=== PATIENT | female | born 1980 | race Caucasian/White ===

== ENCOUNTER → 2016-08-10 | Outpatient (REF) | payer OTHER | LOC: M LAB REF 16:38 | PROVIDERS: ATTEND Obstetrics & Gynecology | DX: R32 Unspecified urinary incontinence (principal) ==

== ENCOUNTER 2016-09-17 07:44 | Day surgery (SDC) | payer OTHER ==
[~2016-09-17] VITALS: Ht 160 cm; Wt 61.7 kg
[2016-09-17] VITALS (7 sets, daily range): BP systolic 116–130; BP diastolic 55–70
[~2016-09-17 07:44] MED LIST: IBUP-1114 PO; MULT1TAB10 PO; TYLE325T5 PO; VITA10006 PO; VITA200015 PO; no medications
[2016-09-17] MEDS ORDERED: LR 1,000 ML IV SCH ×2 (08:00→13:15)
[2016-09-17 08:15] LABS: MEAN CORPUSCULAR HEMOGLOBIN 29.2 pg (27.0-33.0); MEAN CORPUSCULAR VOLUME 85.8 fl (80.0-96.0); RED CELL DISTRIBUTION WIDTH 12.9 % (11.5-14.5); WHITE BLOOD COUNT 14.8 K/mm3 (4.0-10.0)
[2016-09-17] MEDS: LR 1,000 ML IV SCH ×2 (08:15→16:15)
[2016-09-17 08:47] LABS: CONTROL LINE HCG INT CTR LINE PRESENT
[2016-09-17] MEDS ORDERED: ONDANSETRON 4MG/2ML VIAL (J2405) As Ordered ONE (09:10)
[2016-09-17] MEDS ORDERED: PROPOFOL 200 MG/20 ML VIAL As Ordered ONE (09:10)
[2016-09-17] MEDS ORDERED: LIDOCAINE 2% INJ 100 MG/5 ML SDV (FOR ANES.) As Ordered ONE (09:10)
[2016-09-17] MEDS ORDERED: dexameTHASONE 4 MG/ML 1ML VIAL (J1100) As Ordered ONE (09:10)
[2016-09-17] MEDS ORDERED: NEOSTIGMINE 1MG/ML 5 ML SYRINGE (J2710) As Ordered ONE (09:10)
[2016-09-17] MEDS ORDERED: KETOROLAC 60 MG/2 ML VIAL (J1885) As Ordered ONE (09:10)
[2016-09-17] MEDS ORDERED: ROCURONIUM BROMIDE 50 MG/5 ML VIAL As Ordered ONE ×2 (09:10→11:48)
[2016-09-17] MEDS ORDERED: GLYCOPYRROLATE INJ 0.2 MG/ML 2 ML VIAL As Ordered ONE (09:10)
[2016-09-17] MEDS ORDERED: MIDAZOLAM INJ 2 MG/2 ML VIAL (J2250) As Ordered ONE (10:28)
[2016-09-17] MEDS ORDERED: fentaNYL 100 MCG/2 ML INJECTION (J3010) As Ordered ONE (10:28)
[2016-09-17] MEDS ORDERED: HYDROmorphone HCL 2 MG/ML 1ML VIAL (J1170) As Ordered ONE (10:50)
[2016-09-17] MEDS ORDERED: MORPHINE PCA 1MG/ML 100ML CADD As Ordered ONE (12:51)
[2016-09-17] MEDS ORDERED: NALBUPHINE HCL 10 MG/ML AMP (J2300) IV PRN (13:15)
[2016-09-17] MEDS ORDERED: NALOXONE INJ 0.4 MG/1 ML VIAL (J2310) IV PRN (13:15)
[2016-09-17] MEDS ORDERED: EPIDURAL/PCA KEYS XX PRN (13:15)
[2016-09-17] MEDS ORDERED: fentaNYL 100 MCG/2 ML INJECTION (J3010) IV PRN (13:15)
[2016-09-17] MEDS ORDERED: METOCLOPRAMIDE INJ 10MG/2ML VIAL (J2765) IV PRN (13:15)
[2016-09-17] MEDS ORDERED: PERCOCET 5MG/325MG TAB PO PRN (13:15)
[2016-09-17] MEDS ORDERED: MORPHINE PCA 1MG/ML 100ML CADD IV PRN (13:15)
[2016-09-17] MEDS ORDERED: ONDANSETRON 4MG/2ML VIAL (J2405) IV PRN (13:15)
[2016-09-17] MEDS ORDERED: diphenhydrAMINE INJ 50MG/ML VIAL (J1200) IV PRN (13:15)
--- NOTE | 2016-09-17 14:09 | RO ---
DATE OF PROCEDURE: 09/17/2016 PREPROCEDURE DIAGNOSIS AND INDICATION FOR SURGERY: Tender painful bleeding fibroid uterus. POSTPROCEDURE DIAGNOSIS: Tender painful bleeding fibroid uterus. PROCEDURE: Total vaginal hysterectomy with bilateral salpingectomy, removal of uterus, 265 grams, so uterus over 250. SURGEON: Joan Finnegan MD RN PSYCH: Marely Bhakta ANESTHESIA: General endotracheal anesthesia. DESCRIPTION OF PROCEDURE: Brief description of procedure and findings: Dot was brought to the operating room, where sufficient general endotracheal anesthesia was induced. She was prepped, draped, and positioned in usual sterile fashion, the weighted speculum placed, the bladder emptied, and the anterior and posterior aspect of the cervix grasped with a single-tooth tenaculum. A circumferential incision was then made around the base of the cervix, and sharp and blunt dissection were continued until the cardinal ligaments were isolated, so that they could be clamped with de Panchal clamps, transected with Super-Cut scissors, and ligated with 0 Vicryl suture, which was used throughout. The peritoneum was then entered posteriorly, and the uterosacrals were clamped, transected, and ligated, and the dissection was continued anteriorly. We were below the bladder, so we just continued that dissection and controlled the uterine vasculature, and continued the traction on the uterus; and about assisted up the uterus, the ovaries delivered. They were still attached on the infundibular pelvis, but the fibroids had distorted the uterus such that the ovaries were well below the fundus. As such, we could get control of the uteroovarian sensory ligaments bilaterally and of the round ligament on the patient's left side, but on the right side, that had been pushed back up with fibroids. Then, with the bladder dissected free anteriorly, did a myomectomy, and delivered a couple of smaller fibroids to facilitate our access to the uterine vasculature and then completed the dissection through the vasculature on the patient's right side, where it was more readily accessible; and then, having that under complete control and free, we went to bivalve the uterus from behind, so that we could facilitate delivery. As I was cutting that so as to bring down the pedicle, the uterus actually delivered; and, of course, by now, the ovaries were no longer attached; and I was able to work with the uterus extracorporeally to dissect off the bigger fibroids. The left side was completely free, and the right side was still attached; and we then dissected out the bigger fibroid and a good portion of the uterus so that we could have a smaller pedicle remaining on the right so that we could visualize this well. Again, the uteroovarian ligament had already been transected, but the round and the fallopian tubes were still attached. We were able to deliver the fallopian tube and then transect the round, removing that portion, as well, along with the attached fallopian tube from the patient's right side. Going back to the left side, we were able to identify the fallopian tube and deliver that, leaving both ovaries in place. So, we had removed the uterus and both fallopian tubes, but she retained both ovaries. Angle stitches of 0 Vicryl were then taken. Each pedicle was carefully evaluated. The cuff itself was slightly oozing, but the pedicles had good control; and we then closed the cuff, first with a whip stitch where some of that ooziness had been and, of course, with the angle stitches, and then closed it with a running locked stitch, of course, incorporating the uterosacrals for good support in the future. The procedure was then ended. Estimated blood loss for the procedure about 100 mL. Fluid replacement was crystalloid. Complications: None. Specimen: Uterus and tubes. Again, the uterus weighed 265 grams weight in the operating room (OR). CONDITION AND DISPOSITION: Dot tolerated the procedure well and was recovering in the recovery room in good condition.
[2016-09-17] MEDS ORDERED: NORCO, ANEXSIA 5/325MG TABLET (HYDROcodone/ACETAMINOPHEN) PO PRN (20:15)
[2016-09-17] MEDS: IBUPROFEN 600 MG TAB PO PRN (22:40)
[2016-09-18] VITALS: BP 118/59
[2016-09-18 04:00] VITALS: BP 110/59
[2016-09-18 06:54] LABS: MEAN CORPUSCULAR HEMOGLOBIN 29.1 pg (27.0-33.0); MEAN CORPUSCULAR HGB CONC 33.8 g/dl (32.0-36.5); MEAN CORPUSCULAR VOLUME 86.1 fl (80.0-96.0); WHITE BLOOD COUNT 18.1 K/mm3 (4.0-10.0)
[2016-09-18 09:00] VITALS: BP 116/59
[2016-09-18] MEDS: IBUPROFEN 600 MG TAB PO PRN (09:57)
[2016-09-18] MEDS ORDERED: IBUP600T26 PO (10:52)
[2016-09-18] MEDS ORDERED: COLA100C PO (10:56)
[2016-09-18] MEDS ORDERED: NORC5TAB PO (10:56)
== END 2016-09-18 11:40 | disposition home or self-care (01) ==
LOC: M SDC 07:44 → M PED 13:59 → M SDC 09-18 11:40
PROVIDERS: ATTEND Obstetrics & Gynecology
DX: N92.0 Excessive and frequent menstruation with regular cycle (principal); N72 Inflammatory disease of cervix uteri; D25.1 Intramural leiomyoma of uterus; Z88.2 Allergy status to sulfonamides; Z87.891 Personal history of nicotine dependence
CPT/HCPCS: 36415; 58291; 84703; 85027; 86850; 86900; 86901; 88309; J0690; J1100; J1170; J1885; J2250; J2405; J2710; J3010

== ENCOUNTER → 2017-04-08 | Outpatient (CLI) | payer OTHER ==
[~2017-04-08] MED LIST changes: +COLA100C5 PO; +IBUP-1022 PO; +NORC1TAB4 PO
--- NOTE | 2017-04-08 10:07 | REP ---
PA and lateral chest: There are no comparisons. The lung viramontes are clear. The cardiac size is normal The adriana, mediastinum, and bony thorax are unremarkable. Impression: Negative PA and lateral chest. Signed by Trung Kramer MD 04/08/2017 09:58 A
[2017-04-08 11:35] LABS: BASO % 0.4 % (0.0-1.0); EOS # 0.1 K/mm3 (0.0-0.50); EOS % 1.5 % (0.0-3.0); LARGE UNSTAINED CELL # 0.2 K/mm3 (0.0-0.4); LARGE UNSTAINED CELL % 2.4 % (0.0-4.0); LYMPH # 2.8 K/mm3 (1.5-4.5); LYMPH % 34.3 % (24.0-44.0); MEAN CORPUSCULAR HEMOGLOBIN 31.1 pg (27.0-33.0); MEAN CORPUSCULAR HGB CONC 35.5 g/dl (32.0-36.5); MEAN CORPUSCULAR VOLUME 87.6 fl (80.0-96.0); MONO # 0.4 K/mm3 (0.0-0.8); MONO % 4.5 % (0.0-5.0); NEUTROPHILS # 4.7 K/mm3 (1.8-7.7); NEUTROPHILS % 56.8 % (36.0-66.0); PLATELET COUNT, AUTOMATED 290 k/mm3 (150-450); RED CELL DISTRIBUTION WIDTH 12.3 % (11.5-14.5); WHITE BLOOD COUNT 8.2 K/mm3 (4.0-10.0)
[2017-04-08 11:53] LABS: ALBUMIN 3.6 GM/DL (3.2-5.2); ALBUMIN/GLOBULIN RATIO 1.29 (1.00-1.93); ALKALINE PHOSPHATASE 56 U/L (45-117); ALT/SGPT 18 U/L (12-78); ANION GAP 6 MEQ/L (8-16); AST/SGOT 10 U/L (15-37); BILIRUBIN,TOTAL 0.4 MG/DL (0.2-1.0); BLOOD UREA NITROGEN 9 MG/DL (7-18); CALCIUM LEVEL 8.8 MG/DL (8.5-10.1); CARBON DIOXIDE LEVEL 28 MEQ/L (21-32); CHLORIDE LEVEL 107 MEQ/L (98-107); CHOLESTEROL LEVEL 193 MG/DL (<200); CREATININE FOR GFR 1.01 MG/DL (0.55-1.02); GLOMERULAR FILTRATION RATE > 60.0 (>60); GLUCOSE, FASTING 89 MG/DL (70-105); MAGNESIUM LEVEL 2.1 MG/DL (1.8-2.4); POTASSIUM SERUM 4.5 MEQ/L (3.5-5.1); SODIUM LEVEL 141 MEQ/L (136-145); TOTAL PROTEIN 6.4 GM/DL (6.4-8.2); TRIGLYCERIDES LEVEL 106 MG/DL (<150)
[2017-04-08 12:11] LABS: LUTEINIZING HORMONE 24.7 mIU/mL; VITAMIN B12 LEVEL 648 PG/ML
[2017-04-08 12:12] LABS: FOLATE 17.7 NG/ML; FOLLICLE STIMULATING HORMONE 11.6 mIU/mL
== END ==
LOC: M LRY 08:43
PROVIDERS: ATTEND Emergency Medicine
DX: R55 Syncope and collapse (principal); R61 Generalized hyperhidrosis